=== PATIENT | male | born 1960 | race African-American/Black ===

== ENCOUNTER 2017-06-28 16:42 | Inpatient (IN) | payer SELFPAY ==
[~2017-06-28] VITALS: Ht 198.1 cm; Wt 103.4 kg
[2017-06-28 17:13] LABS: BASOPHILS % 1.1 % (0.0-2.0); EOSINOPHILS % 2.6 % (0.0-5.0); LYMPHOCYTES % 33.2 % (20.0-50.0); MEAN CORPUSCULAR HEMOGLOBIN 32.5 pg (28.0-32.0); MEAN CORPUSCULAR VOLUME 93.2 fL (80.0-94.0); MEAN PLATELET VOLUME 8.3 fl (7.4-10.4); MONOCYTES % 11.1 % (2.0-8.0); PLATELET 209 x1000/uL (130-400); RED BLOOD CELL COUNT 4.61 mill/uL (4.7-6.1); RED CELL DISTRIBUTION WIDTH 12.4 % (11.6-14.6)
[2017-06-28 17:17] LABS: PARTIAL THROMBOPLASTIN TIME 25.3 sec (23.4-31.0); PROTHROMBIN TIME 10.7 sec (9.4-11.6)
[2017-06-28 17:23] LABS: CREATINE KINASE 162 IU/L (39-308)
[2017-06-28 17:24] LABS: CREATINE KINASE MB FRACTION 3.2 ng/mL (0.5-3.6)
[2017-06-28] MEDS ORDERED: ASPIRIN 81MG TABLET PO ONE (18:15)
[2017-06-28] MEDS ORDERED: ENALAPRIL 2.5MG/2ML VIAL 2ML IV ONE ×2 (18:15→19:00)
[2017-06-28] MEDS ORDERED: TRAMADOL 50MG TABLET PO ONE (19:30)
[2017-06-28 19:50] LABS: CHLORIDE 104 mEq/L (98-107)
[2017-06-28] MEDS ORDERED: GUAIFENESIN 200MG/10ML SUGAR FREE UDC PO PRN (20:00)
[2017-06-28] MEDS ORDERED: DOCUSATE SODIUM 100MG CAPSULE PO PRN (20:00)
[2017-06-28] MEDS ORDERED: MAGNESIUM/ALUMINUM HYDROXIDE/SIMETHICONE 30ML UDC PO PRN (20:00)
[2017-06-28] MEDS ORDERED: IPRATROPIUM/ALBUTEROL 0.5-3(2.5)MG/3ML NEB INH PRN (20:00)
[2017-06-28] MEDS ORDERED: ONDANSETRON HCL 4MG/2ML VIAL IV PRN (20:00)
[2017-06-28] MEDS ORDERED: ACETAMINOPHEN 325MG TABLET PO PRN (20:00)
[2017-06-28] MEDS ORDERED: ENOXAPARIN 40MG/0.4ML SYR SUBCUT SCH (20:00)
[2017-06-28] MEDS ORDERED: CLONIDINE 0.1MG TABLET PO PRN (20:00)
[2017-06-28 22:12] LABS: CREATINE KINASE 138 IU/L (39-308)
[2017-06-28 22:13] LABS: CREATINE KINASE MB FRACTION 2.4 ng/mL (0.5-3.6)
[2017-06-28] MEDS: HYDROCODONE/ACETAMINOPHEN 5/325MG TABLET PO PRN (22:46)
[2017-06-28 23:49] VITALS: BP 137/78
[2017-06-29] VITALS (12 sets, daily range): BP systolic 105–138; BP diastolic 58–95
[2017-06-29] MEDS ORDERED: NEBI2.5T2 PO (00:01)
[2017-06-29] MEDS ORDERED: RAMI10CA19 PO (00:01)
[2017-06-29] MEDS ORDERED: HYDR-4009 PO (00:01)
[2017-06-29 06:05] LABS: BASOPHILS % 1.1 % (0.0-2.0); HEMATOCRIT. 40.6 % (42.0-52.0); HEMOGLOBIN. 13.8 g/dL (14.0-18.0); LYMPHOCYTES % 44.4 % (20.0-50.0); MEAN CORPUSCULAR VOLUME 93.7 fL (80.0-94.0); MEAN PLATELET VOLUME 8.5 fl (7.4-10.4); NEUTROPHILS % 39.5 % (40.0-76.0); PLATELET 173 x1000/uL (130-400); RED BLOOD CELL COUNT 4.33 mill/uL (4.7-6.1); RED CELL DISTRIBUTION WIDTH 12.3 % (11.6-14.6)
[2017-06-29 06:34] LABS: CHLORIDE 104 mEq/L (98-107)
[2017-06-29 07:02] LABS: LDL CHOLESTEROL 118 mg/dL (5-100)
[2017-06-29 07:03] LABS: HDL CHOLESTEROL 52 mg/dL (40-59); T4 FREE 1.01 ng/dL (0.76-1.46)
[2017-06-29 07:04] LABS: CREATINE KINASE 117 IU/L (39-308); CREATINE KINASE MB FRACTION 2.6 ng/mL (0.5-3.6)
[2017-06-29] MEDS: ASPIRIN 81MG EC TABLET PO SCH (08:31)
[2017-06-29] MEDS: ENOXAPARIN 30MG/0.3ML SYR SUBCUT SCH ×3 (08:31→20:44)
[2017-06-29] MEDS: HYDROCODONE/ACETAMINOPHEN 5/325MG TABLET PO PRN (08:44)
[2017-06-29] MEDS: AMLODIPINE 10MG TABLET PO SCH (08:45)
[2017-06-29] MEDS ORDERED: METOPROLOL TARTRATE 25MG TABLET PO SCH (09:00)
[2017-06-29] MEDS ORDERED: IODIXANOL 320MG/ML 100 ML BOTTLE IV ONE (09:31)
[2017-06-29] MEDS ORDERED: LIDOCAINE HCL/PF 1% 10 MG/ML 5ML VIAL ONE ×2 (09:32→09:51)
[2017-06-29] MEDS ORDERED: ASPIRIN/SOD BICARB/CITRIC ACID 324MG TAB EFF ONE (09:32)
[2017-06-29] MEDS ORDERED: MIDAZOLAM HCL 2 MG/2 ML VIAL ONE (09:47)
[2017-06-29] MEDS ORDERED: FENTANYL CITRATE/PF 50MCG/ML 2ML VIAL ONE (09:48)
[2017-06-29] MEDS ORDERED: IOHEXOL-300 100 ML BOTTLE ONE (09:50)
[2017-06-29] MEDS ORDERED: LABETALOL HCL 5MG/ML VIAL 20ML IV ONE (10:09)
[2017-06-29] MEDS ORDERED: ONDANSETRON HCL 4MG/2ML VIAL IV PRN (10:30)
[2017-06-29] MEDS ORDERED: LOSARTAN POTASSIUM 25 MG TABLET PO SCH (10:30)
[2017-06-29] MEDS ORDERED: ATROPINE SULFATE 1MG/10ML SYR IV PRN (10:30)
[2017-06-29] MEDS: NEBIVOLOL HCL 5 MG TABLET PO SCH ×2 (10:30→20:46)
[2017-06-29] MEDS ORDERED: ACETAMINOPHEN 325MG TABLET PO PRN (10:30)
[2017-06-29] MEDS ORDERED: MORPHINE SULFATE 4 MG/ML CPJ (NOT FOR IM USE) IV PRN (10:30)
[2017-06-29] MEDS ORDERED: SODIUM CHLORIDE 0.45% 1,000 ML IV ONE (11:00)
[2017-06-29] MEDS ORDERED: HEPARIN SODIUM 1,000 UNIT/1ML VIAL IV ONE (13:29)
[2017-06-29] MEDS ORDERED: NICARDIPINE 100MCG/ML 10ML VIAL (CATH LAB) IV ONE (13:29)
[2017-06-29] MEDS ORDERED: NITROGLYCERIN 50MCG/ML 10ML VIAL (CATH LAB) IV ONE (13:29)
[2017-06-29] MEDS: MORPHINE SULFATE 4 MG/ML CPJ (NOT FOR IM USE) IV PRN ×2 (13:40→18:30)
[2017-06-29 18:00] LABS: CLARITY URINE CLEAR (CLEAR); COLOR URINE YELLOW (YELLOW); KETONES URINE NEGATIVE (NEGATIVE); LEUKOCYTE ESTERASE URINE NEGATIVE (NEGATIVE); NITRITE URINE NEGATIVE (NEGATIVE); OCCULT BLOOD URINE TRACE (NEGATIVE); PROTEIN URINE NEGATIVE (NEGATIVE); SPECIFIC GRAVITY URINE 1.013 (1.005-1.030)
[2017-06-29 18:04] LABS: *BARBITURATES SCREEN URINE NEGATIVE (NEGATIVE); *COCAINE SCREEN URINE NEGATIVE (NEGATIVE)
[2017-06-29 18:05] LABS: *AMPHETAMINES SCREEN URINE NEGATIVE (NEGATIVE); *BENZODIAZEPINES SCREEN URINE PRESUMTIVE POSITIVE (NEGATIVE); CANNABINOID URINE SCREEN NEGATIVE (NEGATIVE); METHADONE URINE SCREEN NEGATIVE (NEGATIVE); OPIATES URINE SCREEN PRESUMTIVE POSITIVE (NEGATIVE); PHENCYCLIDINE URINE SCREEN NEGATIVE (NEGATIVE)
[2017-06-29] MEDS: LOSARTAN POTASSIUM 50 MG TABLET PO SCH (20:46)
[2017-06-29] MEDS: LABETALOL HCL 100MG TABLET PO SCH (20:47)
[2017-06-29] MEDS ORDERED: ATORVASTATIN CALCIUM 10MG TABLET PO SCH (21:00)
[2017-06-30] VITALS: BP 99/49
[2017-06-30 04:00] VITALS: BP 99/44
[2017-06-30 06:31] LABS: BASOPHILS % 0.8 % (0.0-2.0); EOSINOPHILS % 1.9 % (0.0-5.0); HEMATOCRIT. 39.4 % (42.0-52.0); HEMOGLOBIN. 13.4 g/dL (14.0-18.0); LYMPHOCYTES % 38.2 % (20.0-50.0); MEAN CORPUSCULAR HEMOGLOBIN 31.7 pg (28.0-32.0); MEAN CORPUSCULAR VOLUME 93.5 fL (80.0-94.0); MEAN PLATELET VOLUME 8.6 fl (7.4-10.4); MONOCYTES % 12.4 % (2.0-8.0); NEUTROPHILS % 46.7 % (40.0-76.0); PLATELET 168 x1000/uL (130-400); RED BLOOD CELL COUNT 4.21 mill/uL (4.7-6.1); RED CELL DISTRIBUTION WIDTH 12.3 % (11.6-14.6)
[2017-06-30 07:40] LABS: CHLORIDE 106 mEq/L (98-107)
[2017-06-30 08:00] VITALS: BP 104/52
[2017-06-30] MEDS: NEBIVOLOL HCL 5 MG TABLET PO SCH (08:17)
[2017-06-30] MEDS: ASPIRIN 81MG EC TABLET PO SCH (08:17)
[2017-06-30] MEDS: AMLODIPINE 10MG TABLET PO SCH (08:18)
[2017-06-30] MEDS: LOSARTAN POTASSIUM 50 MG TABLET PO SCH (08:18)
[2017-06-30] MEDS: ENOXAPARIN 30MG/0.3ML SYR SUBCUT SCH (08:19)
[2017-06-30] MEDS: LABETALOL HCL 100MG TABLET PO SCH (08:19)
[2017-06-30 12:00] VITALS: BP 127/54
[2017-06-30 14:36] VITALS: BP 127/54
[2017-06-30] MEDS ORDERED: LOSARTAN POTASSIUM 25 MG TABLET PO SCH (21:00)
[2017-07-01] MEDS ORDERED: AMLODIPINE 5MG TABLET PO SCH (09:00)
== END 2017-06-30 15:00 | disposition home or self-care (01) | DRG 192 ==
LOC: ER 18:47 → 5WST 19:03 → OBSVTOIN 19:03 → SUPCPDRO 19:51 → ENRESERV 22:10 → 5WST 06-30 11:20
PROVIDERS: ADMIT Hospitalist; ATTEND Hospitalist
PROC: 4A023N7 Measurement of Cardiac Sampling and Pressure, Left Heart, Percutaneous Approach (ICD-10-PCS; principal; 2017-06-29)
PROC: B2111ZZ Fluoroscopy of Multiple Coronary Arteries using Low Osmolar Contrast (ICD-10-PCS; 2017-06-29)
PROC: B2151ZZ Fluoroscopy of Left Heart using Low Osmolar Contrast (ICD-10-PCS; 2017-06-29)
DX: R07.9 Chest pain, unspecified (principal); I10 Essential (primary) hypertension; D72.819 Decreased white blood cell count, unspecified; I25.10 Atherosclerotic heart disease of native coronary artery without angina pectoris; I45.2 Bifascicular block; R94.31 Abnormal electrocardiogram [ECG] [EKG]; E78.5 Hyperlipidemia, unspecified; Z79.899 Other long term (current) drug therapy
CPT/HCPCS: 36415; 71045; 71275; 80053; 80061; 80305; 81003; 82550; 82553; 83735; 83880; 84439; 84443; 84484; 85025; 85610; 85730; 93005; 93306; 93458; 93970; 96374; 96375; 99285; C1760; C1769; C1893; J1644; J1650; J2250; J2270; J2405; J3010; J3490; Q9967